=== PATIENT | female | born 2005 | race Caucasian/White ===

== ENCOUNTER → 2025-01-07 | Outpatient (CLI) | payer MEDICAID, SELFPAY ==
--- NOTE | 2025-01-07 11:30 | XR_ITS ---
Examination: Pelvic ultrasound, transabdominal, complete Technique: Transabdominal ultrasound of the pelvis performed using grayscale imaging Date and time of exam: January 07, 2025 1137 hours INDICATIONS: Irregular heavy menses 4 months FINDINGS: Uterus 6.7 cm endometrial stripe 0.6 cm No uterine mass or intrauterine gestation Right ovary 3.0 cm arterial flow small follicles, the largest 12 mm Left ovary 3.0 cm arterial flow small follicles, the largest 7 mm IMPRESSION: Negative examination
== END | disposition home or self-care (01) ==
PROVIDERS: PCP Student in an Organized Health Care Education/Training Program; Referring Provider Student in an Organized Health Care Education/Training Program; Visit Provider Student in an Organized Health Care Education/Training Program
DX: N91.4 Secondary oligomenorrhea (principal)
CPT/HCPCS: 76856

== ENCOUNTER 2025-05-16 11:02 | Outpatient (AMB) | payer MEDICAID, SELFPAY ==
[2025-05-16 11:11] VITALS: BP 105/71; PULSE 65; RESP 17; TEMP 36.7; O2SAT 96; BMI 29.9
--- NOTE | 2025-05-16 11:11 | AMB.GYNCLNOT ---
Vital Signs 05/16/25 11:11 Height 1.5 m Height Method Stated Weight 67.132 kg Weight Measurement Method Standing Scale BMI 29.9 BP 105/71 Blood Pressure Source Automatic Cuff Blood Pressure Location Right Upper Arm Position Sitting Respiration 17 Pulse 65 Pulse Source Monitor Temp 98.1 F Temp Source Temporal Artery Scan Pulse Oximetry (%) 96 Oxygen Delivery Method Room Air Allergies/Home Meds Allergies & Medications Allergies No Known Allergies Allergy (Verified 05/16/25 11:13) Intake Visit Data Collection New Patient or Established: New Patient (never been to [facility]) Reason for Visit:: REFERRAL IRREGULAR MENSES Seen by Clinical Staff ONLY (RN/MA): No Machine I Engraver Required: No Do You Feel Safe at Home: Yes Authorities Contacted: N/A PCP or OBGYN visit in last 3 months: No Hx Now: No Are you currently on any form of Control: No Last menstrual period: 04/20/25 Pain Present Currently: No Pain Scale Used: Richards-[place]illa/Numerical Pain scale:: 0 Smoking Status Smoking Status: Never smoker 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 1. Little interest or pleasure in doing things: not at all 2. Feeling down, depressed, or hopeless: not at all Total score: 0 PHQ-9 3. Trouble falling or staying asleep, or sleeping too much: Not at all 4. Feeling tired or having little energy: Not at all 5. Poor appetite or overeating: Not at all 6. Feeling bad about yourself - or that you are a failure or have let yourself or your family down: Not at all 7. Trouble concentrating on things, such as reading the newspaper or watching television: Not at all 8. Moving or speaking so slowly that other people could have noticed? - Or the opposite - being so fidgety or restless that you have been moving around a lot more than usual: not at all 9. Thoughts that you would be better off or of hurting yourself in some way: Not at all Total score: 0 If you checked off any problems, how difficult have these problems made it for you to do your work, take care of things at home, or get along with other people?: not difficult at all Source: Developed by Drs. Willie Laws, Rupal Tipton, Geovanny Downey and colleagues, with an educational stefania from [employer]. Depression screen completed yes Social History Living Situation History Marital Status: Single Lives With: Family Housing: House Tobacco History Smoking Status: Never smoker Second Hand Smoke Exposure: No Alcohol History Alcohol Intake: Never Domestic Abuse History Do You Feel Safe at Home: Yes History of Present Illness HPI Narrative Abnormal uterine bleeding, oligomenorrhea with periods of amenorrhea lasting 4 months followed by 2 months without menstruation Madison Owens is a 19-year-old female presenting for consultation regarding abnormal uterine bleeding, specifically oligomenorrhea, as referred by her primary care provider. The patient reports a history of irregular menstrual periods characterized by episodes of amenorrhea. She describes experiencing a 4-month period without menstruation, followed by resumption of her period, then another 2-month gap without menstruation. She notes that recently she has been getting her period more regularly. When asked about the frequency of these irregular episodes, she clarifies that before this year, she only experienced these two specific instances of missed periods. However, she acknowledges that similar irregularities have occurred in the past over the last 5 years, for which she had previously been evaluated. The patient denies current use of control pills or any hormonal medications. Social History: - Sexually active Diagnostic Test Results and Labs: - Laboratory results (03/04/2025): LH 21.4, FSH 8.0, Testosterone 54, Prolactin 18.1, Hemoglobin 13.6 g/dL, CMP within normal limits, B12 544, Hemoglobin A1c 5.0, Folic acid 18.7, TSH 1.5, Ferritin 137, Vitamin D 29.6, ESR 18 - Urinalysis (03/04/2025): Trace blood, WBCs trace 3+ - STI testing (03/04/2025): Gonorrhea negative, Chlamydia negative, Trichomonas negative - HIV (03/04/2025): Negative - Beta-HCG (03/04/2025): Negative - Pelvic ultrasound (01/07/2025): Uterus measuring 6.7 cm, endometrial stripe 0.6 cm. No uterine mass or intrauterine gestation. Right ovary 3 cm with arterial flow and small follicles. Left ovary 3 cm with arterial flow and small follicles. Exam General General Appearance: alert, in no apparent distress and healthy appearing Head Head exam: atraumatic Neck Neck exam: Present normal inspection and trachea midline Chest Chest inspection: Present normal inspection and symmetric chest wall rise External exam: Present normal external exam; Absent tenderness Neuro Neurological exam: Present oriented X3 Psych Psychiatric exam: Present normal affect and normal mood Office Procedures [facility] LOC & Office Proc's Nursing/Assessment Patient Status: Initial/New Patient OB Clinic Nursing Assessment: Medication Reconciliation, Update PMH in EMR and Vital Signs OB Clinic Coordination of Care: Complex Care and Chronic Disease 1-5, Education Complex Pt/Fam, Consent,records obtained, informed consent, Lab and Imaging orders, Results/Orders obtained and Staff clarify orders New Patient Charge New Patient Point Assignment: [id number] New Patient Point Charge: RESEARCH EXECUTIVE Level 3 ([id number]) Assessment & Plan Diagnosis / Problem List (1) Abnormal uterine and vaginal bleeding, unspecified: Status: Acute Plan Oligomenorrhea with anovulatory cycles Assessment: Patient presents with oligomenorrhea characterized by episodes of amenorrhea lasting 2-4 months followed by resumption of menstrual cycles. This pattern has occurred twice in the current year and has been noted in the past. Extensive laboratory workup from February 2025 including LH 21.4, FSH 8.0, testosterone 54, prolactin 18.1, hemoglobin 13.6, TSH 1.5, and other hormonal studies are all within normal limits. Pelvic ultrasound from January 07, 2025 shows normal uterus measuring 6.7 cm with endometrial stripe of 0.6 cm, bilateral ovaries measuring 3 cm each with normal arterial flow and small follicles, no masses or cysts identified. This presentation is consistent with anovulatory cycles secondary to immaturity of the pituitary-ovarian axis, which is common in young women aged 12-25 years as the hormonal system controlling menstruation is still developing. Patient is not on any hormonal contraceptives. Plan: - Prescription for control pills provided for optional use if irregular cycles recur - control may be used for 2-3 months if oligomenorrhea returns - control may be continued for contraceptive purposes if patient is sexually active and desires protection - Consultation note to be sent to primary care provider - No additional testing or interventions recommended at this time
== END 2025-05-16 11:26 | disposition home or self-care (01) ==
LOC: HODSOBC 11:02
PROVIDERS: Supervising Provider Obstetrics & Gynecology; Visit Provider Obstetrics & Gynecology
DX: N91.5 Oligomenorrhea, unspecified (principal)
CPT/HCPCS: 99203; G0463